=== PATIENT | female | born 1945 | race Caucasian/White ===

== ENCOUNTER 2018-03-20 06:00 | Day surgery (SDC) | payer OTHER ==
[~2018-03-20 06:00] MED LIST: PRILOSEC OTC20 MG PO; SYNTHROID125 MCG PO
[2018-03-20] MEDS ORDERED: PERCOCET 5-3251 EACH PO (09:38)
== END 2018-03-20 10:55 | disposition home or self-care (01) ==
LOC: CIR.AMB 06:00
DX: D27.1 Benign neoplasm of left ovary (principal)